=== PATIENT | male | born 1965 | race Caucasian/White ===

== ENCOUNTER 2023-07-13 09:31 | Emergency (ER) | payer SELFPAY ==
[2023-07-13] VITALS (15 sets, daily range): BP systolic 145–162; BP diastolic 78–104; PULSE 100–110; RESP 17–24; TEMP 36.5; O2SAT 96–99; BMI 29.9
--- NOTE | 2023-07-13 09:41 | DI.RAD.S_ITS ---
PROCEDURE: XR CHEST 1V INDICATIONS: Chest pain TECHNIQUE: One view of the chest was acquired. COMPARISON: None. FINDINGS: Surgical changes and devices: None. Lungs and pleura: Lungs are clear. No pleural effusions or pneumothorax. Mediastinum: Mediastinal contours appear normal. Heart size is normal. Bones and chest wall: No suspicious bony lesions. Overlying soft tissues appear unremarkable. IMPRESSION: No acute cardiopulmonary abnormality is seen. Dictated by: Efren Recio M.D. on 07/13/2023 at 9:58 Approved by: Efren Recio M.D. on 07/13/2023 at 9:59
--- NOTE | 2023-07-13 09:58 | ED_ITS ---
HPI - Chest Pain General Chief Complaint: Chest Pain Stated Complaint: center back/chest pain, Time Seen by Provider: 07/13/23 09:41 Source: patient and family Mode of arrival: Ambulatory Limitations: no limitations History of Present Illness HPI narrative: Patient is a 58-year-old male who is here for evaluation of upper back discomfort that he states is radiating to his chest. He states has been going on for the past several weeks. It is not worse to touch but does get worse when he moves around. It is always present but sometimes gets worse than others. He recently was admitted to an outside facility for the chest discomfort. Sounds like had a workup to include an echocardiogram and a CT scan of his heart. Was told that he had coronary artery disease needed a angioplasty. The plan was to get this done after the new year when his insurance kicks in. He denies any shortness of breath. No cough. No fevers. He states that all he wants is a x- ray of his upper back. Related Data Home Medications Medication Instructions Recorded Confirmed amlodipine 5 mg tablet 5 mg PO BEDTIME 07/13/23 07/13/23 atorvastatin 40 mg tablet 40 mg PO ONCE PM 07/13/23 07/13/23 dextroamphetamine-amphetamine ER 1 cap PO QAM 07/13/23 07/13/23 30 mg 24hr capsule,extend release fenofibrate 160 mg tablet 160 mg PO DAILY 07/13/23 07/13/23 losartan 100 mg tablet 100 mg PO BEDTIME 07/13/23 07/13/23 metformin 500 mg tablet,extended 1,000 mg PO DAILY 07/13/23 07/13/23 release 24 hr temazepam 15 mg capsule 15 mg PO ONCE PM PRN insomnia 07/13/23 07/13/23 testosterone 4 pump topical DAILY 07/13/23 07/13/23 Previous Rx's Medication Instructions Recorded cyclobenzaprine 10 mg tablet 10 mg PO TID PRN muscle spasm #21 07/13/23 tabs hydrocodone 5 mg-acetaminophen 325 1 tab PO Q4-6H PRN pain #14 tabs 07/13/23 mg tablet Allergies Allergy/AdvReac Type Severity Reaction Status Date / Time No Known Drug Allergies Allergy Verified 07/13/23 09:55 Review of Systems Review of Systems ROS Unobtainable: All systems reviewed & are unremarkable except as noted in HPI and below Patient History Medical History Low testosterone in male High cholesterol Type 2 diabetes mellitus Hypertension Social History Smoking Status: Never smoker Smoking Status: Never smoker alcohol intake frequency: other Substance Use Type: does not use Exam Initial Vital Signs Initial Vital Signs: Vital Signs Pulse Oximetry 99 07/13/23 09:40 HENMT Head: normal to inspection and normocephalic Chest Chest: No crepitus and No tenderness Resp Effort & Inspection: normal respiratory effort Auscultation: clear to auscultation bilaterally Back/Spine/Pelvis Cervical Spine: No cervical spinal tenderness Thoracic/Lumbar Spine: No mass, No paraspinal tenderness, No thoracic spinal tenderness and No lumbar spinal tenderness Skin General: no rashes or lesions noted Neuro General: patient alert, patient awake and moves all extremities Extrem General: capillary refill normal Course Orders Ordered: ED Orders 07/13/23 09:41 XR chest 1V Stat EKG-12 Lead Stat 07/13/23 09:51 Complete Blood Count AUTO DIFF Stat Comprehensive Metabolic Panel Stat D Dimer Stat Lipase Stat Troponin & CK Cardiac Panel Stat 07/13/23 10:22 XR thoracic spine 3V Stat 07/13/23 11:57 CT angio chest PE protocol Stat Vital Signs Vital signs: Vital Signs - 8 hr 07/13/23 09:40 07/13/23 09:41 07/13/23 09:41 Temperature Pulse Rate 110 H Respiratory Rate Blood Pressure 162/91 H Pulse Oximetry 99 99 Oxygen Delivery Method 07/13/23 09:45 07/13/23 09:46 07/13/23 10:00 Temperature 97.7 F Pulse Rate 108 H 110 H 109 H Respiratory Rate 24 22 24 Blood Pressure 162/91 H Pulse Oximetry 99 98 97 Oxygen Delivery Method Room Air 07/13/23 10:02 07/13/23 10:02 07/13/23 10:15 Temperature Pulse Rate 109 H 105 H Respiratory Rate 22 21 Blood Pressure 151/104 H Pulse Oximetry 98 99 Oxygen Delivery Method 07/13/23 10:30 07/13/23 10:30 07/13/23 10:57 Temperature Pulse Rate 104 H 102 H Respiratory Rate 17 Blood Pressure 145/86 H Pulse Oximetry 97 98 Oxygen Delivery Method 07/13/23 11:00 07/13/23 11:15 07/13/23 11:30 Temperature Pulse Rate 101 H 104 H 100 H Respiratory Rate 21 20 17 Blood Pressure Pulse Oximetry 96 97 96 Oxygen Delivery Method 07/13/23 11:45 07/13/23 12:00 Temperature Pulse Rate 101 H 100 H Respiratory Rate 17 Blood Pressure Pulse Oximetry 96 97 Oxygen Delivery Method MDM - Chest Pain Lab Data Attestation: I reviewed the patient's lab results. 07/13/23 09:51 07/13/23 09:51 Labs: Lab Results 07/13/23 Range/Units 09:51 WBC 7.4 (4.5-11.0) X10^3/uL RBC 5.58 (4.5-5.9) X10^6/uL Hgb 17.2 (13.5-17.5) g/dL Hct 50.6 (41-53) % MCV 90.6 (80-100) fL MCH 30.8 (26-34) PG MCHC 34.0 (30-36) % RDW 15.5 H (11.6-14.8) % Plt Count 236 (150-400) X10^3/uL Neut % (Auto) 54.1 (50-75) % Lymph % (Auto) 31.9 (25-40) % [place] % (Auto) 10.0 (3-14) % Eos % (Auto) 3.4 (2-4) % Baso % (Auto) 0.6 (0-2) % Neut # (Auto) 4000 (9011-5061) /uL Lymph # (Auto) 2400 (8262-1164) /uL [place] # (Auto) 700 (0-900) /uL Eos # (Auto) 300 (0-450) /uL Baso # (Auto) 0 (0-100) /uL D-Dimer 1271 H (<500) ng/ml Sodium 138 (137-145) mmol/L Potassium 4.2 (3.4-5.1) mmol/L Chloride 100 (98-107) mmol/L Carbon Dioxide 29 (22-32) mmol/L BUN 16 (9-20) mg/dL Creatinine 1.12 (0.66-1.25) mg/dL Estimated GFR > 60 (>60) mL/min BUN/Creatinine Ratio 14.3 (6-22) Glucose 186 H (70-100) mg/dL Calcium 9.8 (8.4-10.2) mg/dL Total Bilirubin 0.8 (0.2-1.3) mg/dL AST 68 H (17-59) IU/L ALT 83 H (<50) IU/L Alkaline Phosphatase 75 (38-126) U/L Total Creatine Kinase 165 (55-170) U/L Troponin I < 0.012 (0.01-0.034) ng/mL Total Protein 7.4 (6.3-8.2) g/dL Albumin 4.2 (3.5-5.0) g/dL Globulin 3.2 (1.7-4.1) g/dL Albumin/Globulin Ratio 1.3 (1.0-2.8) Lipase 271 (23-300) U/L Imaging Data Chest x-ray: Radiologist's Impression: PROCEDURE: XR CHEST 1V INDICATIONS: Chest pain TECHNIQUE: One view of the chest was acquired. COMPARISON: None. FINDINGS: Surgical changes and devices: None. Lungs and pleura: Lungs are clear. No pleural effusions or pneumothorax. Mediastinum: Mediastinal contours appear normal. Heart size is normal. Bones and chest wall: No suspicious bony lesions. Overlying soft tissues appear unremarkable. IMPRESSION: No acute cardiopulmonary abnormality is seen. Thoracic spine x-ray: Radiologist's Impression: PROCEDURE: XR THORACIC SPINE 3V INDICATIONS: Midthoracic back pain TECHNIQUE: 3 views of the thoracic spine were acquired. COMPARISON: None. FINDINGS: Bones: No fractures or dislocations. No suspicious bony lesions. 12 pairs of ribs are noted, and appear intact where visualized. Soft tissues: No paravertebral stripe thickening. IMPRESSION: No acute bony abnormality. CT scan - chest: Radiologist's Impression: PROCEDURE: CT ANGIO CHEST PE PROTOCOL INDICATIONS: Tachycardia, chest pain and back pain TECHNIQUE: After the administration of intravenous contrast, 2 mm thick sections acquired from the pulmonary apices to the posterior costophrenic angles. 3-dimensional maximum intensity projection (MIP) coronal and sagittal reformats were then acquired through the thorax. For radiation dose reduction, the following was used: automated exposure control, adjustment of mA and/or kV according to patient size. COMPARISON: None. FINDINGS: Image quality: Diagnostic. Pulmonary arteries: Pulmonary arteries are normal in size, and demonstrate no intraluminal filling defects to suggest central pulmonary embolism. Lungs and pleura: Lungs are clear. No pleural effusions or pneumothorax. Central and peripheral airways are patent. 3 millimeter juxtapleural nodule with smooth margins in the lateral right upper lobe, presumably a benign intrapulmonary lymph node (series 5, image 102). Mosaic attenuation of the lungs. Mediastinum: Heart size is normal, without pericardial effusion. No mediastinal or hilar adenopathy. Thoracic aorta is normal in caliber and enhancement. Esophagus is normal in caliber, without hiatal hernia. Marked coronary calcifications for age. Bones and chest wall: No suspicious bony lesions. Ribs and thoracic spine appear intact throughout. No axillary or supraclavicular adenopathy. No thyroid nodules which require sonographic follow up, per consensus guidelines. Upper Abdomen: Marked hepatic steatosis. IMPRESSION: No pulmonary embolus. Mosaic attenuation of the lungs, suggestive of air trapping in the setting of small airways disease. Marked coronary artery calcifications for age. Consider cardiology referral. ECG Data Attestation: I personally reviewed and interpreted this ECG as follows: Interpretation: Sinus tachycardia Ventricular rate 110 Left axis deviation Normal QRS Normal QTC No ST T wave changes MDM Narrative Medical decision making narrative: Chest x-ray and CT scan of the chest show no signs of pulmonary embolism/rib fractures/spinal fracture. Low suspicion for ACS. Patient states he has had tachycardia in the past. He is known coronary artery disease. It was waiting until he got insurance after the beginning of the new year in order to get further workup of this. There are no skin changes on his back concerning for zoster. It does seem to be worsened with movement but not necessarily palpation. He would an extensive workup at an outside facility of his heart recently. Will discharge patient home with return precautions. He expressed understanding and agreement. Discharge Plan Departure Patient Disposition: Home Clinical Impression: Thoracic back pain Instructions: DI for Thoracic Back Pain Activity Restrictions/Additional Instructions: You can call help you establish a new primary doctor in the area. I recommend that you purchase lidocaine patches [id number] and take them as directed. Use the other medications as directed as well. Return to the emergency department for new symptoms. Prescriptions: New cyclobenzaprine 10 mg tablet 10 mg PO TID PRN (Reason: muscle spasm) Qty: 21 0RF hydrocodone-acetaminophen 5-325 mg tablet 1 tab PO Q4-6H PRN (Reason: pain) Qty: 14 0RF No Action atorvastatin 40 mg tablet 40 mg PO ONCE PM amlodipine 5 mg tablet 5 mg PO BEDTIME temazepam 15 mg capsule 15 mg PO ONCE PM PRN (Reason: insomnia) dextroamphetamine-amphetamine 30 mg capsule,extended release 24hr 1 cap PO QAM losartan 100 mg tablet 100 mg PO BEDTIME metformin 500 mg tablet extended release 24 hr 1,000 mg PO DAILY fenofibrate 160 mg tablet 160 mg PO DAILY testosterone 20.25 mg/1.25 gram (1.62 %) gel in metered-dose pump 4 pump topical DAILY Referrals: Miscellaneous,Doctor, MD [Primary Care Provider] - Stand Alone Forms: Patient Portal/API
[2023-07-13 10:10] LABS: Add Manual Diff / Slide Review NO; Basophils Absolute Auto 0 /uL (0-100); Basophils Percent Auto 0.6 % (0-2); Eosinophils Absolute Auto 300 /uL (0-450); Eosinophils Percent Auto 3.4 % (2-4); Hematocrit 50.6 % (41-53); Hemoglobin 17.2 g/dL (13.5-17.5); Lymphocytes Absolute Auto 2400 /uL (1100-4500); Lymphocytes Percent Auto 31.9 % (25-40); Mean Corpuscular Hemoglobin 30.8 PG (26-34); Mean Corpuscular Volume 90.6 fL (80-100); Monocytes Absolute Auto 700 /uL (0-900); Neutrophils Absolute Auto 4000 /uL (1500-7000); Neutrophils Percent Auto 54.1 % (50-75); Platelet Count 236 X10^3/uL (150-400); Red Blood Cell Count 5.58 X10^6/uL (4.5-5.9); Red Cell Distribution Width 15.5 % (11.6-14.8); White Blood Cell Count 7.4 X10^3/uL (4.5-11.0)
[2023-07-13 10:11] LABS: Alanine Aminotransferase 83 IU/L (<50); Albumin 4.2 g/dL (3.5-5.0); Albumin Globulin Ratio 1.3 (1.0-2.8); Alkaline Phosphatase 75 U/L (38-126); Aspartate Aminotransferase 68 IU/L (17-59); BUN Creatinine Ratio 14.3 (6-22); Bilirubin Total 0.8 mg/dL (0.2-1.3); Blood Urea Nitrogen 16 mg/dL (9-20); Calcium 9.8 mg/dL (8.4-10.2); Carbon Dioxide 29 mmol/L (22-32); Chloride 100 mmol/L (98-107); Creatine Kinase 165 U/L (55-170); Estimated Glomerular Filt Rate > 60 mL/min (>60); Globulin 3.2 g/dL (1.7-4.1); Glucose 186 mg/dL (70-100); HEMOLYSIS 41 (0-50); Lipase 271 U/L (23-300); Potassium 4.2 mmol/L (3.4-5.1); Sodium 138 mmol/L (137-145); Total Protein 7.4 g/dL (6.3-8.2)
[2023-07-13 10:21] LABS: Troponin I < 0.012 ng/mL (0.01-0.034)
--- NOTE | 2023-07-13 10:22 | DI.RAD.S_ITS ---
PROCEDURE: XR THORACIC SPINE 3V INDICATIONS: Midthoracic back pain TECHNIQUE: 3 views of the thoracic spine were acquired. COMPARISON: None. FINDINGS: Bones: No fractures or dislocations. No suspicious bony lesions. 12 pairs of ribs are noted, and appear intact where visualized. Soft tissues: No paravertebral stripe thickening. IMPRESSION: No acute bony abnormality. Dictated by: Efren Recio M.D. on 07/13/2023 at 11:20 Approved by: Efren Recio M.D. on 07/13/2023 at 11:21
[2023-07-13 10:52] LABS: D Dimer 1271 ng/ml (<500)
--- NOTE | 2023-07-13 11:57 | DI.CT.S_ITS ---
PROCEDURE: CT ANGIO CHEST PE PROTOCOL INDICATIONS: Tachycardia, chest pain and back pain TECHNIQUE: After the administration of intravenous contrast, 2 mm thick sections acquired from the pulmonary apices to the posterior costophrenic angles. 3-dimensional maximum intensity projection (MIP) coronal and sagittal reformats were then acquired through the thorax. For radiation dose reduction, the following was used: automated exposure control, adjustment of mA and/or kV according to patient size. COMPARISON: None. FINDINGS: Image quality: Diagnostic. Pulmonary arteries: Pulmonary arteries are normal in size, and demonstrate no intraluminal filling defects to suggest central pulmonary embolism. Lungs and pleura: Lungs are clear. No pleural effusions or pneumothorax. Central and peripheral airways are patent. 3 millimeter juxtapleural nodule with smooth margins in the lateral right upper lobe, presumably a benign intrapulmonary lymph node (series 5, image 102). Mosaic attenuation of the lungs. Mediastinum: Heart size is normal, without pericardial effusion. No mediastinal or hilar adenopathy. Thoracic aorta is normal in caliber and enhancement. Esophagus is normal in caliber, without hiatal hernia. Marked coronary calcifications for age. Bones and chest wall: No suspicious bony lesions. Ribs and thoracic spine appear intact throughout. No axillary or supraclavicular adenopathy. No thyroid nodules which require sonographic follow up, per consensus guidelines. Upper Abdomen: Marked hepatic steatosis. IMPRESSION: No pulmonary embolus. Mosaic attenuation of the lungs, suggestive of air trapping in the setting of small airways disease. Marked coronary artery calcifications for age. Consider cardiology referral. Dictated by: Efren Recio M.D. on 07/13/2023 at 12:13 Approved by: Efren Recio M.D. on 07/13/2023 at 12:15
--- NOTE | 2023-07-13 12:32 | PC.NURSE ---
dr iniguez at bedside
== END 2023-07-13 12:58 | disposition home or self-care (01) ==
PROVIDERS: Emergency Provider Emergency Medicine
DX: M54.6 Pain in thoracic spine (principal); R07.9 Chest pain, unspecified; Z79.899 Other long term (current) drug therapy
CPT/HCPCS: 36415; 71045; 71275; 72072; 80053; 82550; 83690; 84484; 85025; 85379; 93005; 93010; 99284

== ENCOUNTER 2024-08-30 13:40 | Emergency (ER) | payer OTHER, SELFPAY ==
[2024-08-30] VITALS (10 sets, daily range): BP systolic 166–178; BP diastolic 91–107; PULSE 91–101; RESP 14–22; TEMP 36.8; O2SAT 98–100; BMI 29.8
--- NOTE | 2024-08-30 13:48 | DI.RAD.S_ITS ---
PROCEDURE: XR CHEST 1V INDICATIONS: chest pain TECHNIQUE: One view of the chest was acquired. COMPARISON: [facility], CR, XR CHEST 1V, 07/13/2023, 9:45. FINDINGS: Surgical changes and devices: None. Lungs and pleura: Lungs are clear. No pleural effusions or pneumothorax. Mediastinum: Mediastinal contours appear normal. Heart size is normal. Bones and chest wall: No suspicious bony lesions. Overlying soft tissues appear unremarkable. IMPRESSION: No acute cardiopulmonary abnormality is seen. Dictated by: Elvin Anna M.D. on 08/30/2024 at 15:19 Approved by: Elvin Anna M.D. on 08/30/2024 at 15:20
--- NOTE | 2024-08-30 13:48 | EKG_ITS ---
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
[2024-08-30 14:50] LABS: Basophils Absolute Auto 100 /uL (0-100); Basophils Percent Auto 0.6 % (0-2); Eosinophils Absolute Auto 300 /uL (0-450); Eosinophils Percent Auto 2.6 % (2-4); Hematocrit 58.2 % (41-53); Hemoglobin 19.1 g/dL (13.5-17.5); Lymphocytes Absolute Auto 3100 /uL (1100-4500); Lymphocytes Percent Auto 24.6 % (25-40); Mean Corpuscular HGB Conc 32.8 % (30-36); Mean Corpuscular Hemoglobin 27.8 PG (26-34); Mean Corpuscular Volume 84.7 fL (80-100); Monocytes Absolute Auto 1200 /uL (0-900); Monocytes Percent Auto 9.7 % (3-14); Neutrophils Absolute Auto 7900 /uL (1500-7000); Neutrophils Percent Auto 62.5 % (50-75); Platelet Count 341 X10^3/uL (150-400); Red Blood Cell Count 6.86 X10^6/uL (4.5-5.9); Red Cell Distribution Width 18.6 % (11.6-14.8); White Blood Cell Count 12.7 X10^3/uL (4.5-11.0)
[2024-08-30 14:51] LABS: Add Manual Diff / Slide Review SLIDE REVIEW
[2024-08-30 14:59] LABS: PTT Partial Thromboplastin Tim 31 SECONDS (25.1-36.5)
[2024-08-30 15:03] LABS: Alanine Aminotransferase 63 IU/L (<50); Albumin 4.5 g/dL (3.5-5.0); Albumin Globulin Ratio 1.3 (1.0-2.8); Alkaline Phosphatase 76 U/L (38-126); Aspartate Aminotransferase 57 IU/L (17-59); BUN Creatinine Ratio 14.5 (6-22); Bilirubin Total 1.2 mg/dL (0.2-1.3); Blood Urea Nitrogen 18 mg/dL (9-20); Calcium 8.9 mg/dL (8.4-10.2); Carbon Dioxide 27 mmol/L (22-32); Chloride 98 mmol/L (98-107); Creatine Kinase 270 U/L (55-170); Estimated Glomerular Filt Rate > 60 mL/min (>60); Globulin 3.4 g/dL (1.7-4.1); Glucose 115 mg/dL (80-110); Lipase 235 U/L (23-300); Sodium 132 mmol/L (137-145); Total Protein 7.9 g/dL (6.3-8.2)
[2024-08-30 15:05] LABS: Anisocytosis 1+
[2024-08-30 15:07] LABS: HEMOLYSIS 72 (0-50)
[2024-08-30 15:08] LABS: Potassium 4.8 mmol/L (3.4-5.1)
[2024-08-30 15:14] LABS: NT-proBNP (BNP-Adult 18+) < 20 pg/mL (<125); Troponin I < 0.012 ng/mL (0.01-0.034)
--- NOTE | 2024-08-30 15:18 | ED.CHESTPAIN ---
HPI - Chest Pain General Chief Complaint: Chest Pain Stated Complaint: WIC; Polyglycemia, Need Blood Drained Time Seen by Provider: 08/30/24 15:17 Source: patient Mode of arrival: Ambulatory Limitations: no limitations Related Data Home Medications Medication Instructions Recorded Confirmed amlodipine 5 mg tablet 5 mg PO BEDTIME 07/13/23 07/13/23 atorvastatin 40 mg tablet 40 mg PO ONCE PM 07/13/23 07/13/23 dextroamphetamine-amphetamine ER 1 cap PO QAM 07/13/23 07/13/23 30 mg 24hr capsule,extend release fenofibrate 160 mg tablet 160 mg PO DAILY 07/13/23 07/13/23 losartan 100 mg tablet 100 mg PO BEDTIME 07/13/23 07/13/23 metformin 500 mg tablet,extended 1,000 mg PO DAILY 07/13/23 07/13/23 release 24 hr temazepam 15 mg capsule 15 mg PO ONCE PM PRN insomnia 07/13/23 07/13/23 testosterone 4 pump topical DAILY 07/13/23 07/13/23 Previous Rx's Medication Instructions Recorded cyclobenzaprine 10 mg tablet 10 mg PO TID PRN muscle spasm #21 07/13/23 tabs hydrocodone 5 mg-acetaminophen 325 1 tab PO Q4-6H PRN pain #14 tabs 07/13/23 mg tablet Allergies Allergy/AdvReac Type Severity Reaction Status Date / Time No Known Drug Allergies Allergy Verified 07/13/23 09:55 Patient History Medical History Low testosterone in male High cholesterol Type 2 diabetes mellitus Hypertension Social History Smoking Status: Never smoker Smoking Status: Never smoker alcohol intake frequency: other Exam Narrative Exam Narrative: Alert no acute distress Initial Vital Signs Initial Vital Signs: Vital Signs Temperature 98.3 F 08/30/24 13:43 Pulse Rate 95 H 08/30/24 13:43 Respiratory Rate 18 08/30/24 13:43 Blood Pressure 174/107 H 08/30/24 13:43 Pulse Oximetry 99 08/30/24 13:43 Oxygen Delivery Method Room Air 08/30/24 13:43 HENMT HENMT Other: Normocephalic atraumatic pupils are equal round reactive extraocular movements are intact Neck Other: Neck is supple Resp Other: Lungs are clear with equal breath Cardio Other: Regular rhythm rate no murmur rub or gallop Extrem Other: Pedal pulses are intact radial pulses are intact feet and hands have a plethoric appearance as does his face Course Course Course Narrative: At 3:50 p.m., the patient he is requesting to leave Against Medical Advice. States that if we can not perform a phlebotomy here he wants to leave. He does not wish to have any further testing believes that if he has a phlebotomy he will feel better immediately. He is willing to undergo further testing if does not feel better after the phlebotomy. Understands that I am concerned about a possible head bleed, understands I am concerned about a possible pulmonary embolism or cardiac ischemia. Your attempting to contact his learning support specialist. I will also attempt to contact Hematology here to see if we can arrange to have a phlebotomy done or do on tonight Orders Ordered: ED Orders 08/30/24 13:48 XR chest 1V Stat EKG-12 Lead Stat 08/30/24 13:56 Complete Blood Count AUTO DIFF Stat Comprehensive Metabolic Panel Stat Lipase Stat Magnesium Stat NT-proBNP (BNP-Adult 18+) Stat PTT Partial Thromboplastin [place] Stat Prothrombin Time INR Stat Troponin & CK Cardiac Panel Stat 08/31/24 09:00 Therapeutic Phlebotomy Routine Consultations Consultation #1: I was able to curbside whenever local learning support specialist. Agrees that a therapeutic phlebotomy would be in this patient's best interest. Recommended that he establish with a local learning support specialist as well. Vital Signs Vital signs: Vital Signs - 8 hr 08/30/24 13:43 08/30/24 14:07 08/30/24 14:09 Temperature 98.3 F Pulse Rate 95 H 96 H 95 H Respiratory Rate 18 22 18 Blood Pressure 174/107 H Pulse Oximetry 99 98 99 Oxygen Delivery Method Room Air 08/30/24 14:09 08/30/24 14:30 08/30/24 14:30 Temperature Pulse Rate 99 H Respiratory Rate 19 Blood Pressure 176/105 H 170/91 H Pulse Oximetry 98 Oxygen Delivery Method 08/30/24 14:58 08/30/24 14:58 08/30/24 15:00 Temperature Pulse Rate 96 H 97 H Respiratory Rate 18 19 Blood Pressure 171/101 H Pulse Oximetry 99 99 Oxygen Delivery Method 08/30/24 15:00 08/30/24 15:30 08/30/24 15:30 Temperature Pulse Rate 101 H Respiratory Rate 22 Blood Pressure 166/98 H 178/96 H Pulse Oximetry 100 Oxygen Delivery Method 08/30/24 16:02 08/30/24 16:04 08/30/24 16:04 Temperature Pulse Rate 94 H 93 H Respiratory Rate 21 16 Blood Pressure 170/95 H Pulse Oximetry 99 Oxygen Delivery Method 08/30/24 16:30 08/30/24 16:30 Temperature Pulse Rate 91 H Respiratory Rate 14 Blood Pressure 173/94 H Pulse Oximetry 99 Oxygen Delivery Method MDM - Chest Pain Lab Data Lab results narrative: Markedly elevated hemoglobin 19.1 consistent with polycythemia. Troponin was normal. 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 no acute ST segment changes 08/30/24 13:56 08/30/24 13:56 Labs: Lab Results 08/30/24 Range/Units 13:56 WBC 12.7 H (4.5-11.0) X10^3/uL RBC 6.86 H (4.5-5.9) X10^6/uL Hgb 19.1 H (13.5-17.5) g/dL Hct 58.2 H (41-53) % MCV 84.7 (80-100) fL MCH 27.8 (26-34) PG MCHC 32.8 (30-36) % RDW 18.6 H (11.6-14.8) % Plt Count 341 (150-400) X10^3/uL Neut % (Auto) 62.5 (50-75) % Lymph % (Auto) 24.6 L (25-40) % [place] % (Auto) 9.7 (3-14) % Eos % (Auto) 2.6 (2-4) % Baso % (Auto) 0.6 (0-2) % Neut # (Auto) 7900 H (2366-2968) /uL Lymph # (Auto) 3100 (3979-1059) /uL [place] # (Auto) 1200 H (0-900) /uL Eos # (Auto) 300 (0-450) /uL Baso # (Auto) 100 (0-100) /uL RBC Morphology See below Anisocytosis 1+ H PT 11.0 (9.4-12.5) SECONDS INR 1.0 (0.9-1.3) APTT 31 (25.1-36.5) SECONDS Sodium 132 L (137-145) mmol/L Potassium 4.8 (3.4-5.1) mmol/L Chloride 98 (98-107) mmol/L Carbon Dioxide 27 (22-32) mmol/L BUN 18 (9-20) mg/dL Creatinine 1.24 (0.66-1.25) mg/dL Estimated GFR > 60 (>60) mL/min BUN/Creatinine Ratio 14.5 (6-22) Glucose 115 H (80-110) mg/dL Calcium 8.9 (8.4-10.2) mg/dL Magnesium 2.0 (1.6-2.3) mg/dL Total Bilirubin 1.2 (0.2-1.3) mg/dL AST 57 (17-59) IU/L ALT 63 H (<50) IU/L Alkaline Phosphatase 76 (38-126) U/L Total Creatine Kinase 270 H (55-170) U/L Troponin I < 0.012 (0.01-0.034) ng/mL NT-Pro-B Natriuret Pep < 20 (<125) pg/mL Total Protein 7.9 (6.3-8.2) g/dL Albumin 4.5 (3.5-5.0) g/dL Globulin 3.4 (1.7-4.1) g/dL Albumin/Globulin Ratio 1.3 (1.0-2.8) Lipase 235 (23-300) U/L Imaging Data Chest x-ray: My Impression: Independent review, no acute findings Radiologist's Impression: No acute abnormality per Radiology ECG Data Interpretation: 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 Had chest pain and a headache, did not wish to have CT head or further testing her etiologies of chest pain such as pulmonary embolism. He does not have a local learning support specialist, I was able to arrange for a therapeutic phlebotomy tomorrow. Discharge Plan Departure Patient Disposition: Home Clinical Impression: Polycythemia Activity Restrictions/Additional Instructions: Return tomorrow as planned for therapeutic phlebotomy. Recheck in the emergency department for increasing shortness of breath severe headache vomiting or other acute symptoms. I recommend that you find a local physician and a local learning support specialist. Prescriptions: No Action atorvastatin 40 mg tablet 40 mg PO ONCE PM amlodipine 5 mg tablet 5 mg PO BEDTIME temazepam 15 mg capsule 15 mg PO ONCE PM PRN (Reason: insomnia) dextroamphetamine-amphetamine 30 mg capsule,extended release 24hr 1 cap PO QAM losartan 100 mg tablet 100 mg PO BEDTIME metformin 500 mg tablet extended release 24 hr 1,000 mg PO DAILY fenofibrate 160 mg tablet 160 mg PO DAILY testosterone 20.25 mg/1.25 gram (1.62 %) gel in metered-dose pump 4 pump topical DAILY cyclobenzaprine 10 mg tablet 10 mg PO TID PRN (Reason: muscle spasm) Qty: 21 0RF hydrocodone-acetaminophen 5-325 mg tablet 1 tab PO Q4-6H PRN (Reason: pain) Qty: 14 0RF Referrals: Miscellaneous,Doctor, MD [Primary Care Provider] - Stand Alone Forms: Patient Portal/API/Survey
== END 2024-08-30 16:48 | disposition home or self-care (01) ==
PROVIDERS: Emergency Provider Emergency Medicine
DX: D75.1 Secondary polycythemia (principal); R51.9 Headache, unspecified; R07.9 Chest pain, unspecified
CPT/HCPCS: 36415; 71045; 80053; 82550; 83690; 83735; 83880; 84484; 85025; 85610; 85730; 93005; 99284

== ENCOUNTER → 2024-08-31 08:51 | Outpatient (CLI) | payer OTHER, SELFPAY ==
[2024-08-31 09:35] LABS: Therapeutic Phleb Consent Chec Consent signed @ reg
[2024-08-31 09:36] LABS: 585 Gram Check PASS; Patient Weight <110 lb NO; Prediastolic 100 mmHg; Presystolic 166 mmHg; Pulse 94 bpm; Temperature 97.6; Zero Check Sebra Scale PASS
[2024-08-31 09:37] LABS: Amount Collected in g 585 g; Amount Collected mL calc 508 mL; Postdiastolic BP 106 mmHg; Postsystolic BP 162 mmHg; Site of phlebotomy Left antecubital
== END ==
PROVIDERS: Referring Provider Emergency Medicine; Visit Provider Emergency Medicine
DX: D75.1 Secondary polycythemia (principal)
CPT/HCPCS: 99195

== ENCOUNTER 2024-11-02 10:15 | Outpatient (RCR) | payer OTHER, SELFPAY | END 2024-12-13 12:15 | LOC: CAR 10:15 | PROVIDERS: Referring Provider Internal Medicine Interventional Cardiology; Visit Provider Internal Medicine Interventional Cardiology | DX: I21.02 ST elevation (STEMI) myocardial infarction involving left anterior descending coronary artery (principal); I25.10 Atherosclerotic heart disease of native coronary artery without angina pectoris; Z95.5 Presence of coronary angioplasty implant and graft | CPT/HCPCS: 93798 ==

== ENCOUNTER 2025-04-26 14:15 | Outpatient (RCR) | payer OTHER, SELFPAY | END 2025-04-26 16:15 | LOC: CAR 14:15 | PROVIDERS: Referring Provider Nuclear Medicine Nuclear Cardiology; Visit Provider Nuclear Medicine Nuclear Cardiology | DX: I25.10 Atherosclerotic heart disease of native coronary artery without angina pectoris (principal) | CPT/HCPCS: 82962; 93798 ==

== ENCOUNTER 2025-06-08 02:25 | Emergency (ER) | payer MEDICAID, SELFPAY ==
[2025-06-08] VITALS (10 sets, daily range): BP systolic 132–149; BP diastolic 77–92; PULSE 78–84; RESP 8–29; TEMP 36.4; O2SAT 98–100; BMI 28.6
--- NOTE | 2025-06-08 02:34 | EKG_ITS ---
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
--- NOTE | 2025-06-08 02:38 | DI.RAD.S_ITS ---
PROCEDURE: XR CHEST 1V INDICATIONS: Chest Pain TECHNIQUE: One view of the chest was acquired. COMPARISON: [facility], CR, XR CHEST 1V, 08/30/2024, 13:54. [facility], CR, XR CHEST 1V, 07/13/2023, 9:45. FINDINGS AND IMPRESSION: No dense airspace disease or pleural effusion on this single view study. Possible bibasal atelectasis. Low lung volumes. Unchanged cardiomediastinal contours. Degenerative osseous findings. No discrepancy from the preliminary report. Dictated by: Sohan Lynne M.D. on 06/08/2025 at 7:22 Approved by: Sohan Lynne M.D. on 06/08/2025 at 7:22
[2025-06-08 02:51] LABS: Add Manual Diff / Slide Review NO; Hematocrit 53.2 % (41-53); Hemoglobin 17.1 g/dL (13.5-17.5); Lymphocytes Absolute Auto 2600 /uL (1100-4500); Mean Corpuscular HGB Conc 32.1 % (30-36); Mean Corpuscular Hemoglobin 26.8 PG (26-34); Mean Corpuscular Volume 83.3 fL (80-100); Platelet Count 280 X10^3/uL (150-400)
--- NOTE | 2025-06-08 02:54 | ED.CHESTPAIN ---
HPI - Chest Pain General Chief Complaint: Chest Pain Stated Complaint: Chest pains, Covid positive, SOB, back pain Time Seen by Provider: 06/08/25 02:35 Source: patient Mode of arrival: Ambulatory Limitations: no limitations History of Present Illness HPI narrative: Patient is a 60-year-old male history of coronary artery disease with stent, DVT polycythemia presenting today with back pain and known COVID. He reports that for the last 3 days he has been ill with COVID now he is having back pain radiating to his front having chest pain. It hurts to lay down in his back it hurts to breathe it hurts to move. He has oxycodone at home which he has been taking in his not been helping. He denies any abdominal pain no lower extremity swelling. He travels frequently for work he is on both Xarelto and Plavix. He is followed by cardiology at [facility] Related Data Home Medications ?Medication ?Instructions ?Recorded ?Confirmed amlodipine 5 mg tablet 5 mg PO BEDTIME 07/13/23 07/13/23 atorvastatin 40 mg tablet 40 mg PO ONCE PM 07/13/23 07/13/23 dextroamphetamine-amphetamine ER 1 cap PO QAM 07/13/23 07/13/23 30 mg 24hr capsule,extend release fenofibrate 160 mg tablet 160 mg PO DAILY 07/13/23 07/13/23 losartan 100 mg tablet 100 mg PO BEDTIME 07/13/23 07/13/23 metformin 500 mg tablet,extended 1,000 mg PO DAILY 07/13/23 07/13/23 release 24 hr temazepam 15 mg capsule 15 mg PO ONCE PM PRN insomnia 07/13/23 07/13/23 testosterone 4 pump topical DAILY 07/13/23 07/13/23 Previous Rx's ?Medication ?Instructions ?Recorded cyclobenzaprine 10 mg tablet 10 mg PO TID PRN muscle spasm #21 07/13/23 tabs hydrocodone 5 mg-acetaminophen 325 1 tab PO Q4-6H PRN pain #14 tabs 07/13/23 mg tablet codeine 10 mg-guaifenesin 200 mg/5 5 ml PO Q6H PRN cough #100 mL 06/08/25 mL oral liquid Allergies Allergy/AdvReac Type Severity Reaction Status Date / Time ketorolac (From Toradol) AdvReac Nausea Verified 06/08/25 02:47 lorazepam (From Ativan) AdvReac Agitated Verified 06/08/25 02:47 Patient History Medical History Low testosterone in male High cholesterol Type 2 diabetes mellitus Hypertension Social History Smoking Status: Never smoker Smoking Status: Never smoker alcohol intake frequency: other Exam Initial Vital Signs Initial Vital Signs: Vital Signs Pulse Rate 83 06/08/25 02:32 Blood Pressure 144/89 H 06/08/25 02:32 Pulse Oximetry 99 06/08/25 02:32 Oxygen Delivery Method Room Air 06/08/25 02:32 GENERAL: Alert 60-year-old male appears to not feel well and in no acute distress. HEENT: Head atraumatic,EOMI, pupils reactive, face symmetric, moist mucous membranes CARDIOVASCULAR: Regular rate and rhythm without murmurs, rubs or gallops. RESPIRATORY: Breath sounds equal bilaterally, no wheezes rales or rhonchi. ABDOMEN: Soft, nontender. Normoactive bowel sounds all 4 quadrants. No guarding or rebound. BACK: Thoracic pain tender to touch between T5 and T8 EXTREMITIES: Normal range of motion, no clubbing or edema. Neurovascularly intact NEUROLOGICAL: Alert and oriented x4.Normal gait and speech. Cranial nerves II through XII grossly intact. SKIN: Warm, dry, no laceration, no petechiae, no rashes or lesions. Course Orders Ordered: ED Orders 06/08/25 02:28 EKG-12 Lead Stat 06/08/25 02:38 XR chest 1V Stat 06/08/25 02:40 Complete Blood Count AUTO DIFF Stat Comprehensive Metabolic Panel Stat Lactate (Lactic Acid) Stat Lipase Stat Magnesium Stat NT-proBNP (BNP-Adult 18+) Stat PTT Partial Thromboplastin Gilson Stat Prothrombin Time INR Stat Troponin & CK Cardiac Panel Stat 06/08/25 03:02 CT angio chest abdomen pelvis Stat 06/08/25 04:40 Trop I [Troponin I] Stat Discontinued Medications Diphenhydramine HCl (Diphenhydramine 50 Mg/Ml Vial) 25 mg IV NOW ONE Stop: 06/08/25 03:42 Last Admin: 06/08/25 03:44 Dose: 25 mg Documented By: LS Hydromorphone HCl (Hydromorphone 1 Mg/Ml Syringe) 1 mg IV NOW ONE Stop: 06/08/25 03:01 Last Admin: 06/08/25 03:05 Dose: 1 mg Documented By: AMBAR Hydromorphone HCl (Hydromorphone Hcl 0.5 Mg/0.5 Ml Syringe) 0.5 mg IV NOW ONE Stop: 06/08/25 03:52 Last Admin: 06/08/25 03:53 Dose: 0.5 mg Documented By: RODRIGUE Acetaminophen (Ofirmev) 1,000 mg in 100 mls @ 400 mls/hr IV NOW ONE Stop: 06/08/25 03:09 Last Admin: 06/08/25 03:14 Dose: Not Given Documented By: RODRIGUE Sodium Chloride (Normal Saline 0.9%) 1,000 mls @ 1,000 mls/hr IV BOLUS ONE Stop: 06/08/25 04:40 Last Infusion: 06/08/25 04:43 Dose: Infused Documented By: Admin: 06/08/25 03:47 Dose: 1,000 mls/hr Documented By: RODRIGUE Methylprednisolone (Methylprednisolone Succ 125 Mg/2 Ml Vial) 125 mg IV NOW ONE Stop: 06/08/25 03:42 Last Admin: 06/08/25 03:45 Dose: 125 mg Documented By: RODRIGUE Vital Signs Vital signs: Vital Signs - 8 hr 06/08/25 02:32 06/08/25 02:32 06/08/25 02:34 Temperature 97.5 F L Pulse Rate 83 83 Respiratory Rate 26 H Blood Pressure 144/89 H 144/89 H Pulse Oximetry 99 99 Oxygen Delivery Method Room Air Room Air 06/08/25 03:00 06/08/25 03:00 06/08/25 03:42 Temperature Pulse Rate 83 79 Respiratory Rate 29 H Blood Pressure 149/83 H Pulse Oximetry 99 100 Oxygen Delivery Method Room Air Room Air 06/08/25 03:43 06/08/25 03:43 06/08/25 04:00 Temperature Pulse Rate 78 80 Respiratory Rate 13 21 Blood Pressure 143/77 H Pulse Oximetry 99 98 Oxygen Delivery Method Room Air Room Air 06/08/25 04:00 06/08/25 04:30 06/08/25 04:30 Temperature Pulse Rate 81 Respiratory Rate 18 Blood Pressure 143/82 H 144/88 H Pulse Oximetry 99 Oxygen Delivery Method Room Air 06/08/25 05:00 06/08/25 05:00 06/08/25 05:30 Temperature Pulse Rate 84 Respiratory Rate 17 Blood Pressure 138/83 137/92 H Pulse Oximetry 99 Oxygen Delivery Method Room Air 06/08/25 05:30 06/08/25 06:00 06/08/25 06:00 Temperature Pulse Rate 84 84 Respiratory Rate 8 L 14 Blood Pressure 132/84 Pulse Oximetry 98 98 Oxygen Delivery Method Room Air Room Air MDM - Chest Pain Lab Data 06/08/25 02:40 06/08/25 02:40 Labs: Lab Results 06/08/25 06/08/25 Range/Units 02:40 04:40 WBC 12.8 H (4.5-11.0) X10^3/uL RBC 6.39 H (4.5-5.9) X10^6/uL Hgb 17.1 (13.5-17.5) g/dL Hct 53.2 H (41-53) % MCV 83.3 (80-100) fL MCH 26.8 (26-34) PG MCHC 32.1 (30-36) % RDW 17.0 H (11.6-14.8) % Plt Count 280 (150-400) X10^3/uL Neut % (Auto) 65.7 (50-75) % Lymph % (Auto) 20.1 L (25-40) % [place] % (Auto) 10.8 (3-14) % Eos % (Auto) 2.9 (2-4) % Baso % (Auto) 0.5 (0-2) % Neut # (Auto) 8400 H (3089-2457) /uL Lymph # (Auto) 2600 (7415-2192) /uL [place] # (Auto) 1400 H (0-900) /uL Eos # (Auto) 400 (0-450) /uL Baso # (Auto) 100 (0-100) /uL Platelet Estimate Adequate on smear RBC Morphology See below Anisocytosis 1+ H Macrocytosis 1+ H PT 19.5 H (9.4-12.5) SECONDS INR 1.7 H (0.9-1.3) APTT 38 H (25.1-36.5) SECONDS Sodium 144 (137-145) mmol/L Potassium 4.2 (3.4-5.1) mmol/L Chloride 108 H (98-107) mmol/L Carbon Dioxide 22 (22-32) mmol/L BUN 41 H (9-20) mg/dL Creatinine 1.32 H (0.66-1.25) mg/dL Estimated GFR > 60 (>60) mL/min BUN/Creatinine Ratio 31.1 H (6-22) Glucose 93 (70-99) mg/dL Lactate 1.1 (0.7-2.1) mmol/L Calcium 9.7 (8.4-10.2) mg/dL Magnesium 2.1 (1.6-2.3) mg/dL Total Bilirubin 0.8 (0.2-1.3) mg/dL AST 48 (17-59) IU/L ALT 66 H (<50) IU/L Alkaline Phosphatase 77 (38-126) U/L Total Creatine Kinase 205 H (55-170) U/L Troponin I < 0.012 < 0.012 (0.01-0.034) ng/mL NT-Pro-B Natriuret Pep < 20 (<125) pg/mL Total Protein 8.4 H (6.3-8.2) g/dL Albumin 4.7 (3.5-5.0) g/dL Globulin 3.7 (1.7-4.1) g/dL Albumin/Globulin Ratio 1.3 (1.0-2.8) Lipase 197 (23-300) U/L Imaging Data Chest x-ray: Radiologist's Impression: Preliminary report no acute cardiopulmonary disease CT scan - chest: Radiologist's Impression: CT angio chest abdomen pelvis no acute aortic abnormality borderline aneurysmal dilation of upper portion of descending thoracic aorta. Minimal left hydronephrosis there is a nonobstructing upper pole renal stone on the left but no ureteral stone or hydroureter ECG Data Attestation: I personally reviewed and interpreted this ECG as follows: Interpretation: Sinus rhythm rate 82 WV interval 156 QRS [address] changes MDM Narrative Medical decision making narrative: MDM CC: Cough back pain Complicating co-morbidities: Coronary artery disease, polycythemia vera DVT on Xarelto Data collected from: Patient Medical records reviewed: Yes, previous ED visit 08/30/2024 for polycythemia vera Differential considered: Pneumonia, musculoskeletal, dissection Exam documented above, pertinent findings include: Patient has palpable reproducible thoracic pain breath sounds are clear abdomen is soft Lab Test results independently reviewed as above. Pertinent findings: Troponin negative x2, BNP negative CBC no anemia, leukocytosis 12.8 similar to prior CMP no electrolyte abnormality creatinine 1.32 she had baseline Bilirubin liver enzymes at baseline Independently reviewed EKG as above Sinus rhythm no ischemia Imaging studies independently reviewed: Chest x-ray no acute cardiopulmonary process CT angio no pneumonia no dissection Consultations: [ ] Treatments: Dilaudid Re-evaluations: After CT angio patient felt nauseous and vomited. He has had IV contrast in the past without any kind of issue. He had also received Dilaudid prior to going to CT but he has had multiple doses of Dilaudid prior without any issue. He has no evidence of angioedema Discussion: Patient 60-year-old male presenting today with back pain. This is very reproducible to palpation. He has ruled out for dissection no evidence of acute coronary syndrome. He is having upper respiratory symptoms COVID fever. He has no evidence of pneumonia no need for antibiotics. At this time pain management only Discharge Plan Departure Patient Disposition: Home Clinical Impression: Viral upper respiratory illness, Back pain, thoracic Instructions: Thoracic Back Pain Activity Restrictions/Additional Instructions: *You have been diagnosed with back pain *What to do: At this time I think you are experiencing back pain from coughing. There is no need for antibiotics at this time. Heating pad light stretches. Hopefully shots feeling better she *Continue to take medications as directed Cough syrup with codeine DO NOT TAKE THIS WITH YOUR PAIN MEDICATION BOTH ARE OPIATES and decreased breathing *Follow up with your primary care provider in 2-3 days or call [phone] *Return to ER if you should have increasing pain chest pain shortness of breath weakness or any new, worsening or concerning symptoms CONTROLLED SUBSTANCE DISCHARGE (Narcotoic/benzodiazepine/Flexeril/Phenergan) 1. You have been prescribed narcotic medications, it does have acetaminophen/Tylenol/paracetamol in it, DO NOT TAKE MORE THAN 4,00mg in 24 hours of Tylenol. TRAMADOL DOES NOT CONTAIN TYLENOL 2. Please understand that we cannot provide further refills of narcotics, benzodiazepines or controlled substances through the ED and her pain management will need to be through your provider. 3. While on these medications you cannot drive or operate heavy machinery. 4. You cannot sign legal documents or perform any duties such as this. 5. As long as you're taking opiate pain medications he should also be taking a stool softener such as Colace, Dulcolax, MiraLAX or prune juice, to help avoid constipation. Prescriptions: New codeine-guaifenesin 10-200 mg/5 mL liquid 5 ml PO Q6H PRN (Reason: cough) Qty: 100 0RF No Action atorvastatin 40 mg tablet 40 mg PO ONCE PM amlodipine 5 mg tablet 5 mg PO BEDTIME temazepam 15 mg capsule 15 mg PO ONCE PM PRN (Reason: insomnia) dextroamphetamine-amphetamine 30 mg capsule,extended release 24hr 1 cap PO QAM losartan 100 mg tablet 100 mg PO BEDTIME metformin 500 mg tablet extended release 24 hr 1,000 mg PO DAILY fenofibrate 160 mg tablet 160 mg PO DAILY testosterone 20.25 mg/1.25 gram (1.62 %) gel in metered-dose pump 4 pump topical DAILY cyclobenzaprine 10 mg tablet 10 mg PO TID PRN (Reason: muscle spasm) Qty: 21 0RF hydrocodone-acetaminophen 5-325 mg tablet 1 tab PO Q4-6H PRN (Reason: pain) Qty: 14 0RF Stand Alone Forms: Patient Portal/API
[2025-06-08 02:57] LABS: INR 1.7 (0.9-1.3); Prothrombin Time 19.5 SECONDS (9.4-12.5)
[2025-06-08 03:00] LABS: PTT Partial Thromboplastin Tim 38 SECONDS (25.1-36.5)
[2025-06-08 03:01] LABS: Alanine Aminotransferase 66 IU/L (<50); Albumin 4.7 g/dL (3.5-5.0); Albumin Globulin Ratio 1.3 (1.0-2.8); Alkaline Phosphatase 77 U/L (38-126); Blood Urea Nitrogen 41 mg/dL (9-20); Calcium 9.7 mg/dL (8.4-10.2); Carbon Dioxide 22 mmol/L (22-32); Chloride 108 mmol/L (98-107); Creatine Kinase 205 U/L (55-170); Estimated Glomerular Filt Rate > 60 mL/min (>60); Globulin 3.7 g/dL (1.7-4.1); Glucose 93 mg/dL (70-99); Lipase 197 U/L (23-300); Magnesium 2.1 mg/dL (1.6-2.3); Potassium 4.2 mmol/L (3.4-5.1); Sodium 144 mmol/L (137-145); Total Protein 8.4 g/dL (6.3-8.2)
--- NOTE | 2025-06-08 03:02 | DI.CT.S_ITS ---
PROCEDURE: CT ANGIO CHEST ABDOMEN PELVIS INDICATIONS: Thoracic back pain history of aneurysms TECHNIQUE: After the administration of intravenous contrast, 2.5 mm thick sections again acquired from the lung apices to the iliac crests. Maximum intensity projection (MIP) oblique sagittal and coronal reformats were then acquired. For radiation dose reduction, the following was used: automated exposure control. COMPARISON: [facility], CT, CT ANGIO CHEST PE PROTOCOL, 07/13/2023, 12:07. FINDINGS: Image quality: Diagnostic Lungs and pleura: Mild basal atelectasis. No airspace consolidation. No pneumothorax. No pleural effusions. Stable suspect micro nodules and granulomas are present. Consider optional annual chest CT surveillance if the patient is considered at elevated risk for pulmonary malignancy. Mediastinum, heart, and esophagus: Unremarkable CT appearance of the esophagus. No enlarged lymph nodes by size criteria. Coronary calcifications. No central pulmonary embolism. No aortic dissection. No hemopericardium. Ascending aorta measures 4 cm at the level of the main pulmonary artery. No significant atherosclerotic disease. The great arch vessels appear patent Chest wall and thyroid: Unremarkable Liver: Unremarkable Gallbladder and biliary system: Unremarkable, nondilated Pancreas: Mild parenchymal atrophy. No ductal dilation Spleen: Nonenlarged Adrenals: No discrete nodules Kidneys: Scattered renal cysts. No suspicious solid enhancing renal mass. Suspect nonobstructing small left upper pole calculus. Left parapelvic cysts are also seen. No hydronephrosis. Vessels and lymph nodes: Venous systems are not well assessed on this study. The celiac, SMA and ALESSANDRA appear patent. No significant aortoiliac stenotic disease. Renal arteries appear patent. No abdominal aortic aneurysm. No enlarged lymph nodes by size criteria. Bowel and peritoneum: No bowel obstruction. Colonic diverticulosis Nondilated appendix. No drainable abscess or ascites Body wall: Fat and omentum containing umbilical hernia, with mild congestion. Small fat containing inguinal hernias. Pelvis: Bladder is unremarkable. Prostate is unremarkable on limited CT evaluation Bones: Degenerative osseous changes. No aggressive appearing osseous abnormality. IMPRESSION: No aortic dissection. No hemopericardium. Borderline ectatic ascending aorta measures up to 4 cm at the level of the main pulmonary artery. Mild spinal degenerative changes. No significant discrepancy from the preliminary report. Dictated by: Sohan Lynne M.D. on 06/08/2025 at 7:24 Approved by: Sohan Lynne M.D. on 06/08/2025 at 7:33
[2025-06-08 03:12] LABS: Troponin I < 0.012 ng/mL (0.01-0.034)
[2025-06-08 03:21] LABS: Lactate (Lactic Acid) 1.1 mmol/L (0.7-2.1)
[2025-06-08 03:38] LABS: HEMOLYSIS 15 (0-50); NT-proBNP (BNP-Adult 18+) < 20 pg/mL (<125)
[2025-06-08 03:44] LABS: Anisocytosis 1+; Macrocytosis 1+
[2025-06-08] MEDS: diphenhydrAMINE 50 MG/ML VIAL 25 MG IV (03:44)
[2025-06-08] MEDS: methylPREDNISolone succ 125 MG/2 ML VIAL IV (03:45)
[2025-06-08] MEDS: SODIUM CHLORIDE 0.9% 1,000 ML 1000 ML IV (03:47)
--- NOTE | 2025-06-08 03:50 | PC.NURSE ---
Pt rtn'd from CT. Per packaging technician pt began vomiting and having an itchy throat. Dr. Garcia informed and to bedside. Meds ordered. Ice provided per pt request, ok'd by Dr. Garcia. Pt reconnected to cardiac, resp, blood pressure, and pulse ox monitors with alarms on and audible. VS stable at this time. Call light within reach.
[2025-06-08 05:10] LABS: Troponin I < 0.012 ng/mL (0.01-0.034)
--- NOTE | 2025-06-08 05:28 | PC.NURSE ---
Pt ambulatory to restroom without difficulty or assistance
== END 2025-06-08 06:23 | disposition home or self-care (01) ==
PROVIDERS: Emergency Provider Emergency Medicine
DX: J06.9 Acute upper respiratory infection, unspecified (principal); M54.6 Pain in thoracic spine; Z95.5 Presence of coronary angioplasty implant and graft; Z79.01 Long term (current) use of anticoagulants
CPT/HCPCS: 36415; 71045; 71275; 74174; 80053; 82550; 83605; 83690; 83735; 83880; 84484; 85025; 85610; 85730; 93005; 96361; 96374; 96375; 96376; 99284; J1171; J1200; J2919; J7030; Q9967